=== PATIENT | female | born 1965 | race American Indian/Alaskan Native ===

== ENCOUNTER 2018-01-12 15:53 | Outpatient (CLI) | payer MEDICARE, MEDICAID, SELFPAY ==
--- NOTE | 2018-01-12 11:12 | DI.RAD_ITS ---
SYMPTOM/DIAGNOSIS: RIB PAIN, LT SIDE R07.81 LEFT RIBS WITH PA CHEST: Comparison 11/23/16. Heart size and pulmonary vasculature are within normal limits. The lungs are clear and well expanded. No effusions or pneumothoraces identified. No left rib fractures are identified. Degenerative changes are seen in the spine. There is an old compression deformity of the T-12 vertebral body. IMPRESSION: No acute abnormality.
== END 2018-01-12 16:13 ==
PROVIDERS: PCP Family Medicine; Visit Provider Family Medicine
DX: R07.81 Pleurodynia (principal)
CPT/HCPCS: 71046; 71100

== ENCOUNTER 2018-02-05 00:37 | Outpatient (CLI) | payer MEDICARE, MEDICAID, SELFPAY ==
--- NOTE | 2018-02-05 12:35 | DI.MAMMO_ITS ---
SYMPTOMS/DIAGNOSIS: BREAST LUMP OR MASS, N63.0, H/O FIBROCYSTIC BREASTS DIAGNOSTIC BILATERAL MAMMOGRAM AND LEFT BREAST ULTRASOUND: MAMMOGRAM: Mammograms were interpreted according to the usual protocol including computer analysis with CAD system, tomosynthesis and C view imaging. The patient notes a palpable abnormality in the superior left breast. A marker was placed over this location. Comparison is made with mammograms from 2010 through 2017. The breasts are composed of heterogeneously dense fibroglandular tissue, breast density category C. No suspicious microcalcifications or changes are seen. No abnormality is seen in the area of the marker in the superior left breast. LEFT BREAST ULTRASOUND: Left breast ultrasound shows normal-appearing breast tissue. No cyst or mass is identified. IMPRESSION: Category 1C, negative mammogram and left breast ultrasound. Yearly screening mammography is recommended. Bi-RADS category C. The breasts are heterogeneously dense, which may obscure small masses.
== END 2018-02-05 00:57 ==
PROVIDERS: PCP Family Medicine; Visit Provider Family Medicine
DX: N63.20 Unspecified lump in the left breast, unspecified quadrant (principal); N60.12 Diffuse cystic mastopathy of left breast; N64.59 Other signs and symptoms in breast
CPT/HCPCS: 76642; 77062; 77063; 77066; 77067; G0279

== ENCOUNTER → 2018-02-15 10:40 | Outpatient (BNVA) | payer MEDICARE, MEDICAID, SELFPAY | PROVIDERS: PCP Family Medicine; Visit Provider Psychiatry & Neurology Neurology | DX: G56.03 Carpal tunnel syndrome, bilateral upper limbs (principal); R20.2 Paresthesia of skin | CPT/HCPCS: 99214 ==

== ENCOUNTER → 2018-05-28 09:11 | Outpatient (BNVA) | payer MEDICARE, MEDICAID, SELFPAY | PROVIDERS: PCP Family Medicine; Visit Provider Psychiatry & Neurology Neurology | DX: R20.2 Paresthesia of skin (principal); M54.5 Low back pain; G95.89 Other specified diseases of spinal cord | CPT/HCPCS: 99214 ==

== ENCOUNTER 2018-09-17 01:07 | Outpatient (CLI) | payer MEDICARE, MEDICAID, SELFPAY ==
--- NOTE | 2018-09-17 09:19 | DI.RAD_ITS ---
SYMPTOM/DIAGNOSIS: RT HIP PAIN, M25.551 RIGHT HIP AND PELVIS: Three views were obtained. There appears to be slight narrowing of the cartilaginous joint space of the right hip superiorly. Similar changes appear to be present on the left. Slight hypertrophic spurring of the acetabulae also noted bilaterally. The femoral heads appear intact. No other bony abnormality is seen. CONCLUSION: Findings consistent with mild DJD of both hips.
== END 2018-09-17 01:27 ==
PROVIDERS: PCP Family Medicine; Visit Provider Family Medicine
DX: M25.551 Pain in right hip (principal); M16.0 Bilateral primary osteoarthritis of hip
CPT/HCPCS: 73502

== ENCOUNTER 2018-11-15 00:33 | Outpatient (CLI) | payer MEDICARE, MEDICAID, SELFPAY ==
--- NOTE | 2018-11-15 08:17 | DI.RAD_ITS ---
SYMPTOM/DIAGNOSIS: CLAVICLE PAIN M89.8X8 RIGHT CLAVICLE: The right clavicle appears intact. There are minimal degenerative changes involving the AC joint.
== END 2018-11-15 00:53 ==
PROVIDERS: PCP Family Medicine; Visit Provider Family Medicine
DX: M19.011 Primary osteoarthritis, right shoulder; M25.511 Pain in right shoulder
CPT/HCPCS: 73000

== ENCOUNTER 2018-12-11 15:41 | Outpatient (REF) | payer MEDICARE, MEDICAID, SELFPAY ==
[2018-12-11 21:29] LABS: HCT 39.1 % (36.0-46.0); HGB 12.9 g/dL (12.0-15.5)
[2018-12-11 21:44] LABS: TSH (W/Ref FT4) 1.48 uIU/mL (0.36-3.74)
== END 2018-12-11 16:01 ==
LOC: NCHCN 15:41
PROVIDERS: PCP Family Medicine; Visit Provider Family Medicine
DX: E03.9 Hypothyroidism, unspecified (principal); D50.9 Iron deficiency anemia, unspecified
CPT/HCPCS: 84443; 85014; 85018

== ENCOUNTER 2019-03-07 14:19 | Outpatient (REF) | payer MEDICARE, MEDICAID, SELFPAY ==
--- NOTE | 2019-03-07 10:45 | PAPFT_PTH ---
PATIENT: Som Rubio LOC: [facility]#:[id number] AGE/SX: 53/F ROOM: RE03/07/[address]: Zayra Paulino V : 1965 BED: DIS: 03/07/2019 SPEC #: [id number] RECD: 03/08/19 13:02 STATUS: YEIMI REAngeles #: [id number] MINI: 03/07/19 10:[address]: Zayra Paulino V DEPT: [facility] Cytology RECD BY: Briana Stacy Tissues: 1 - CX/ENDOCX FOR PAP SMEARS Procedures: PAP THIN PREP/UVM Screening HPV DNA PROBE Comments: [id number]
== END 2019-03-07 14:39 ==
LOC: NCHCN 14:19
PROVIDERS: PCP Family Medicine; Visit Provider Family Medicine
DX: Z12.4 Encounter for screening for malignant neoplasm of cervix (principal); Z01.419 Encounter for gynecological examination (general) (routine) without abnormal findings
CPT/HCPCS: 88142; 87624

== ENCOUNTER 2019-11-08 10:51 | Outpatient (REF) | payer MEDICARE, MEDICAID, SELFPAY ==
[2019-11-08 19:23] LABS: HCT 37.8 % (36.0-46.0); HGB 11.9 g/dL (12.0-15.5); Mean Corp. HGB Concentration 31.5 g/dL (32.0-36.0); Mean Corpuscular Hemoglobin 26.8 pg (27.0-33.0); Mean Corpuscular Volume 85.1 fL (80-95); Mean Platelet Volume 9.6 fL (8.0-11.0); Platelet Count 464 x1000/uL (130-400); RBC 4.44 m/cumm (4.00-5.20); RBC Distribution Width 15.3 % (11.7-14.6); White Blood Cell Count 7.17 k/cumm (4.4-10.8)
[2019-11-08 19:50] LABS: ALT 18 U/L (14-59); AST 13 U/L (15-37); Albumin 3.7 g/dL (3.4-5.0); Alkaline Phosphatase 54 U/L (46-116); Anion Gap 8.5 mmol/L (3-11); BUN 14 mg/dL (7-18); Bilirubin, Total 0.4 mg/dL (0.2-1.0); CO2 26.5 mmol/L (21.0-32.0); CREATININE 0.72 mg/dL (0.55-1.02); Calcium 9.5 mg/dL (8.5-10.1); Chloride 106 mmol/L (98-107); Glucose 87 mg/dL (74-106); Potassium 4.5 mmol/L (3.5-5.1); Sodium 141 mmol/L (136-145); TSH (W/Ref FT4) 2.07 uIU/mL (0.36-3.74)
== END 2019-11-08 11:11 ==
LOC: NCHCN 10:51
PROVIDERS: PCP Family Medicine; Visit Provider Family Medicine
DX: E03.9 Hypothyroidism, unspecified (principal); D50.9 Iron deficiency anemia, unspecified
CPT/HCPCS: 80053; 85027; 84443

== ENCOUNTER 2019-11-14 01:43 | Outpatient (CLI) | payer MEDICARE, MEDICAID, SELFPAY ==
[2019-11-14] MEDS: Breeza Beverage 473 ML BTL PO (08:36)
[2019-11-14] MEDS: Normal Saline - Diluent 50 ML VIAL IV (10:40)
[2019-11-14] MEDS: Omnipaque 350 MG/ML 100 ML BTL IJ (10:40)
--- NOTE | 2019-11-14 10:41 | DI.CT_ITS ---
EXAM: CT ABDOMEN PELVIS W CLINICAL HISTORY: RT FLANK PAIN,R10.9,RENAL CYST, N28.1. TECHNIQUE: Imaging Protocol: Axial computed tomography images with coronal and sagittal reformatted images were created and reviewed CONTRAST MATERIAL: Intravenous: Omnipaque 350 Contrast volume:100 ml Oral: yes COMPARISON: US ABDOMEN ULTRASOUND (P) from 05/23/2016 MR MRI LUMBAR WO from 08/20/2018 MR MRI LUMBAR WO from 08/20/2018 FINDINGS: ABDOMEN: Lung Bases: Normal where visualized. Liver: Normal density. No measurable mass. Gallbladder and biliary tract: No radiodense calculus or dilation. Pancreas: Normal density, no abnormal calcifications or inflammatory process. Spleen: Normal. Kidneys: Normal size, contour and axis. No radiodense stones or obstructive uropathy. No masses seen. Simple cyst at the lower pole the right kidney now measuring 5.8 cm in greatest dimension. Adrenal glands: No masses seen. Abdominal Aorta: Abdominal portion non-dilated. PELVIS: Bladder: Symmetric distention, no gross wall thickening. Bowel: No obstruction or bowel wall thickening. Normal appendix. Peritoneal cavity: No ascites, collection or mesenteric inflammatory response. Bones: Stable T12 compression fracture. Reproductive organs: Within normal limits. Lymph nodes: Unremarkable. Impression: Right renal cyst. No evidence of stones or hydronephrosis. RADIATION DOSE DELIVERED: 1,305.09mGy.cm Total DLP DATA REPOSITORY: All CT scans at this facility are submitted to the National Radiology Data Registry (NRDR) Dose Index Registry (DIR) with the [employer] (ACR). RADIATION OPTIMIZATION: All CT scans at this facility use at least one of these dose optimization te chniques: automated exposure control; mA and/or kV adjustment per patient size (includes targeted exa ms where dose is matched to clinical indication); or iterative reconstruction.
== END 2019-11-14 02:03 ==
PROVIDERS: PCP Family Medicine; Visit Provider Family Medicine
DX: N28.1 Cyst of kidney, acquired (principal)
CPT/HCPCS: 74177; J3490

== ENCOUNTER → 2019-11-21 14:02 | Outpatient (BNVA) | payer MEDICARE, MEDICAID, SELFPAY | PROVIDERS: PCP Family Medicine; Referring Provider Family Medicine; Visit Provider Urology | DX: N28.1 Cyst of kidney, acquired (principal) | CPT/HCPCS: 99203; 99214 ==

== ENCOUNTER 2020-06-24 04:15 | Outpatient (CLI) | payer MEDICARE, MEDICAID, SELFPAY ==
--- NOTE | 2020-07-13 08:49 | ZIOP_ITS ---
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 ?The patient was in normal sinus rhythm for the majority of the recording with an average heart rate of 72 bpm. ?There were 9 episodes of supraventricular tachycardia with the longest lasting 12 beats. There were rare PACs. ?There were no episodes of atrial fibrillation, no pauses greater than 3 seconds and no evidence of high degree heart block. ?There were 2 patient triggered events not associated with arrhythmia
== END 2020-06-24 04:16 | disposition home or self-care (01) ==
LOC: RT 04:15
PROVIDERS: PCP Family Medicine; Visit Provider Family Medicine
DX: R01.1 Cardiac murmur, unspecified (principal)
CPT/HCPCS: 93246

== ENCOUNTER 2020-07-13 08:49 | Outpatient (CLI) | payer MEDICARE, MEDICAID, SELFPAY | END 2020-07-13 08:50 | LOC: CARDO 07-20 09:57 | PROVIDERS: PCP Family Medicine; Referring Provider Family Medicine; Visit Provider Internal Medicine Cardiovascular Disease | DX: R01.1 Cardiac murmur, unspecified (principal); I47.1 Supraventricular tachycardia | CPT/HCPCS: 93248 ==

== ENCOUNTER 2020-08-18 14:25 | Outpatient (REF) | payer MEDICARE, MEDICAID, SELFPAY ==
[2020-08-18 16:18] LABS: HCT 34.3 % (36.0-46.0); HGB 10.4 g/dL (11.2-15.7)
[2020-08-18 16:42] LABS: TSH (W/Ref FT4) 1.07 uIU/mL (0.36-3.74)
== END 2020-08-18 14:26 | disposition home or self-care (01) ==
LOC: NCHCN 14:25
PROVIDERS: PCP Family Medicine; Visit Provider Family Medicine
DX: E03.9 Hypothyroidism, unspecified (principal); D50.9 Iron deficiency anemia, unspecified
CPT/HCPCS: 84443; 85014; 85018

== ENCOUNTER 2021-02-09 21:40 | Outpatient (REF) | payer MEDICARE, MEDICAID, SELFPAY ==
[2021-02-12 09:30] LABS: Codeine Negative ng/mL (Cutoff: 25); Dihydrocodeine Negative ng/mL (Cutoff: 25); Hydrocodone Negative ng/mL (Cutoff: 25); Hydromorphone Negative ng/mL (Cutoff: 25); Morphine Negative ng/mL (Cutoff: 25); Naloxone Negative ng/mL (Cutoff: 25); Norhydrocodone 43 ng/mL (Cutoff: 25); Noroxycodone Negative ng/mL (Cutoff: 25); Noroxymorphone Negative ng/mL (Cutoff: 25); Opiates Interpretation Positive.
== END 2021-02-09 21:41 | disposition home or self-care (01) ==
LOC: NCHCN 21:40
PROVIDERS: PCP Family Medicine; Visit Provider Family Medicine
DX: Z51.81 Encounter for therapeutic drug level monitoring (principal)
CPT/HCPCS: 80361; 80362; 80365

== ENCOUNTER 2021-02-15 01:03 | Outpatient (CLI) | payer MEDICARE, MEDICAID, SELFPAY ==
--- NOTE | 2021-02-15 10:30 | DI.RAD_ITS ---
Exam(s) XR CERVICAL SPINE COMP 4-5V EXAM: XR CERVICAL SPINE COMP 4-5V CLINICAL HISTORY: NEUROPATHIC PAIN, M79.2,RT ELBOW, PAIN, M25.521. TECHNIQUE: 2D digital imaging was performed. COMPARISON: No exams were available for comparison FINDINGS: There is mild reversal of the normal lordotic curvature of the cervical spine, however, there is no e vidence of acute fracture or listhesis nor offset of the spinal laminar line. There is mild disc spa ce narrowing at C5-6 level. No prominent Luschka joint osteophytes. The neural foramen appear nicel y patent all levels on the oblique views. There are no cervical ribs. Incidentally noted on the lat eral view is calcification in the supraspinous ligament at C5 level, this calcification measuring 9 x 5 millimeters. There are mild multilevel degenerative changes in the facet joints. IMPRESSION: Mild disc space narrowing noted at C5-6 level. Some facet arthropathy mild. Reversal of the normal lordotic curvature Clinically indicated follow-up MRI can be performed. DATA REPOSITORY: RADIATION DOSE DELIVERED:
== END 2021-02-15 01:23 ==
PROVIDERS: PCP Family Medicine; Visit Provider Family Medicine
DX: M25.521 Pain in right elbow (principal); M79.2 Neuralgia and neuritis, unspecified; M47.892 Other spondylosis, cervical region
CPT/HCPCS: 72050

== ENCOUNTER 2021-02-25 01:03 | Outpatient (CLI) | payer MEDICARE, MEDICAID, SELFPAY ==
--- NOTE | 2021-02-25 13:17 | DI.RAD_ITS ---
Exam(s) XR ELBOW RT COMPLETE EXAM: XR ELBOW RT COMPLETE CLINICAL HISTORY: RT ELBOW PAIN M25.521. TECHNIQUE: 2D digital imaging was performed. COMPARISON: No exams were available for comparison FINDINGS: BONES: No acute fracture is present. No bony destructive lesion is seen. JOINTS: Mild periarticular spurring. The elbow is normally aligned. No joint effusion is seen. SOFT TISSUE: Normal. IMPRESSION: Mild degenerative changes.. DATA REPOSITORY: RADIATION DOSE DELIVERED:
== END 2021-02-25 01:23 ==
PROVIDERS: PCP Family Medicine; Visit Provider Family Medicine
DX: M25.521 Pain in right elbow (principal)
CPT/HCPCS: 73080

== ENCOUNTER 2021-06-24 18:14 | Outpatient (REF) | payer MEDICARE, MEDICAID, SELFPAY ==
[2021-06-24 18:39] LABS: HCT 32.6 % (36.0-46.0); HGB 9.7 g/dL (11.2-15.7); MCH 23.5 pg (27.0-33.0); MCHC 29.8 % (32.0-36.0); MCV 79.1 fL (80-95); MPV 9.1 fL (8.0-11.0); Platelet Count 427 10^3/uL (130-400); RBC 4.12 10^6/uL (3.93-5.22); RDW 17.6 % (11.7-14.6); RDW-SD 50.9 fL; WBC 8.55 10^3/uL (4.4-10.8)
[2021-06-24 18:58] LABS: ALT 16 U/L (14-59); AST 16 U/L (15-37); Albumin 3.8 g/dL (3.4-5.0); Alkaline Phosphatase 65 U/L (46-116); Anion Gap 7.9 mmol/L (3-11); BUN 10 mg/dL (7-18); Bilirubin, Total 0.4 mg/dL (0.2-1.0); C-Reactive Protein 0.07 mg/dL (0.0-0.3); CO2 26.1 mmol/L (21.0-32.0); CREATININE 0.7 mg/dL (0.55-1.02); Calcium 8.9 mg/dL (8.5-10.1); Chloride 108 mmol/L (98-107); Glucose 88 mg/dL (74-106); Potassium 4.1 mmol/L (3.5-5.1); Sodium 142 mmol/L (136-145); TSH (W/Ref FT4) 0.98 uIU/mL (0.36-3.74); Total Protein 7.3 g/dL (6.4-8.2)
[2021-06-24 19:48] LABS: Ferritin 6 ng/mL (8-252); Vitamin B12 444 pg/mL (193-986)
[2021-06-24 20:04] LABS: Hemoglobin A1C 5.5 % (<5.7)
[2021-06-29 11:52] LABS: Codeine Negative ng/mL (Cutoff: 25); Dihydrocodeine 62 ng/mL (Cutoff: 25); Hydrocodone 88 ng/mL (Cutoff: 25); Hydromorphone 55 ng/mL (Cutoff: 25); Morphine Negative ng/mL (Cutoff: 25); Naloxone Negative ng/mL (Cutoff: 25); Norhydrocodone 219 ng/mL (Cutoff: 25); Noroxycodone Negative ng/mL (Cutoff: 25); Noroxymorphone Negative ng/mL (Cutoff: 25); Opiates Interpretation Positive.
== END 2021-06-24 18:15 | disposition home or self-care (01) ==
LOC: NCHCN 18:14
PROVIDERS: PCP Family Medicine; Visit Provider Family Medicine
DX: R63.1 Polydipsia (principal); M25.551 Pain in right hip; R20.2 Paresthesia of skin; M54.2 Cervicalgia; Z51.81 Encounter for therapeutic drug level monitoring
CPT/HCPCS: 80053; 80361; 80362; 80365; 85027; 82607; 82728; 83036; 84443; 86140

== ENCOUNTER 2021-07-09 01:40 | Outpatient (CLI) | payer MEDICARE, MEDICAID, SELFPAY ==
--- NOTE | 2021-07-09 | DI.MRI_ITS ---
Exam(s) MR BRAIN WO/W EXAM: MR BRAIN WO/W CLINICAL HISTORY: PARESTHESIA HANDS, R20.2 TECHNIQUE: Multiplanar multisequence MRI of the brain was performed. CONTRAST MATERIAL: IV Contrast: 20 mL of Dotarem contrast administered. COMPARISON: MR MRI BRAIN WO from 08/20/2018 FINDINGS: The examination is limited due to patient motion artifact. VENTRICLES AND EXTRA AXIAL SPACES: Normal in size and morphology for the patient's age. HEMORRHAGE: None. CEREBRAL PARENCHYMA: No focus of restricted diffusion to suggest acute infarct. No space-occupying le clarence identified. There are few hyperintense signal foci in the white matter. These likely reflect sm all vessel ischemic disease. MIDLINE SHIFT: None. BRAINSTEM/CEREBELLUM: Normal. CALVARIUM: Normal. ENHANCEMENT: No suspicious enhancement identified. VISUALIZED PARANASAL SINUSES/MASTOIDS: Small mucous retention cysts or polyps are seen in the maxilla ry sinuses. The remaining visualized paranasal sinuses are clear. SHUNGNAK OF VEGA: Normal flow void. PITUITARY GLAND: Unremarkable. OTHER FINDINGS: IMPRESSION: 1. A few hyperintense foci in the white matter on the FLAIR and T2 images likely reflecting small ves lyn ischemic disease. 2. No evidence of acute infarct or enhancing lesion. DATA REPOSITORY:
--- NOTE | 2021-07-09 | DI.MRI_ITS ---
Exam(s) MR CERVICAL SPINE WO/W EXAM: MR CERVICAL SPINE WO/W CLINICAL HISTORY: WEAKNESS RT ARM, R53.1, TRANSVERSE MYELITIS, G37.3, CERVICALGIA, M54.2 TECHNIQUE: Multiplanar multisequence MRI of the cervical spine was performed. CONTRAST MATERIAL: IV Contrast: 20 ML of Dotarem contrast administered. COMPARISON: CR XR CERVICAL SPINE COMP 4-5V from 02/15/2021 FINDINGS: The examination is limited due to patient motion artifact. BONES: Vertebral body heights are maintained. Intervertebral disc spaces are normal. Alignment is nor mal. Bone marrow signal intensity is within normal limits. CERVICAL CORD: Craniovertebral junction is unremarkable. The cervical cord is normal size and signal intensity. No lesion is present. SOFT TISSUES: Unremarkable. ENHANCEMENT: No suspicious enhancement identified. C2-3: No disc herniation or bulge is identified. No significant central spinal canal or neural forami nal stenosis. C3-4: No disc herniation or bulge is identified. No significant central spinal canal or neural forami nal stenosis C4-5: No disc herniation or bulge is identified. No significant central spinal canal or neural forami nal stenosis C5-6: There is prominence of the osteophyte disc complex. This causes mild narrowing of the central spinal canal. No significant neural foraminal stenosis is present. C6-7: No disc herniation or bulge is identified. No significant central spinal canal or neural forami nal stenosis C7-T1: No disc herniation or bulge is identified. No significant central spinal canal or neural ross inal stenosis IMPRESSION: 1. There is normal signal in the spinal cord. 2. Prominence of the osteophyte disc complex at C5-6 causing mild central spinal canal stenosis. 3. No abnormal enhancement is identified in the spinal cord. DATA REPOSITORY:
[2021-07-09] MEDS: Normal Saline Flush 10 ML SYR IVP (14:57)
[2021-07-09] MEDS: Gadoterate meglumine 20 ML VIAL IVP (14:58)
== END 2021-07-09 02:00 ==
PROVIDERS: PCP Family Medicine; Visit Provider Family Medicine
DX: R20.2 Paresthesia of skin (principal); R53.1 Weakness; M54.2 Cervicalgia; G37.3 Acute transverse myelitis in demyelinating disease of central nervous system; M48.02 Spinal stenosis, cervical region; R94.02 Abnormal brain scan
CPT/HCPCS: 70553; 72156

== ENCOUNTER 2021-07-27 01:44 | Outpatient (CLI) | payer MEDICARE, MEDICAID, SELFPAY ==
--- NOTE | 2021-07-27 15:00 | DI.MAMMO_ITS ---
Exam(s) MAMMO SCREENING EXAM: MAMMO SCREENING CLINICAL HISTORY: SCREENING, Z12.31 TECHNIQUE: Bilateral full field digital CC and MLO mammographic images were obtained with 3D tomosyn thesis and utilizing computer aided detection (CAD). COMPARISON: Available for comparison. FINDINGS: Masses/Architectural Distortion: None seen. Microcalcifications: No suspicious pleomorphic-type are seen. Skin Thickening/Nipple Retraction: None. IMPRESSION: 1. No significant interval change with no specific features of malignancy noted. 2. Unless there is more urgent need, screening mammography is recommended, as per [employer] guidelines. BI-RADS Category 1 - Negative Breast Density - Category C - Heterogeneously dense Breast density category C or D implies that the patient has dense breast tissue. Dense breast tissue is very common and is not abnormal but dense breast tissue can make it harder to find cancer on a ma mmogram. Also, dense breast tissue may increase their breast cancer risk. This information about the result of the mammogram report was provided to the patient to raise their awareness. Use this report when you speak with the patient about their risks for breast cancer, which includes their family hist ory. At that time, you may recommend for more screening tests (Ultrasound or MRI) as they might be us eful based on their risk. A negative radiographic report should not delay biopsy if a dominant or clinically suspicious mass is present. Up to ten percent of cancers are not identified on mammography. A negative report may reinforce clinical impression. Adenosis and dense breasts may obscure an underlying neoplasm. False positive reports average 6 to 10%. Patient will receive a letter notifying them of these results.
== END 2021-07-27 02:04 ==
PROVIDERS: PCP Family Medicine; Visit Provider Family Medicine
DX: Z12.31 Encounter for screening mammogram for malignant neoplasm of breast (principal)
CPT/HCPCS: 77063; 77067

== ENCOUNTER → 2021-11-10 01:31 | Outpatient (CLI) | payer MEDICARE, MEDICAID, SELFPAY ==
--- NOTE | 2021-11-10 09:15 | DI.MRI_ITS ---
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 TECHNIQUE: Multiplanar multisequence MRI of the Thoracic spine was performed. COMPARISON: MR MRI THORACIC SPINE from 11/23/2016 FINDINGS: Bones: There is a stable old compression deformity of T12. There is again seen minimal posterior dis placement of the inferior endplate resulting in mild narrowing of the central spinal canal at T12-L1. Alignment is satisfactory. There is no change in the mixed signal in the T6 vertebral body. This pr obably represents a stable lesion such as a hemangioma.. Marrow signal is otherwise within normal li mits. Cord: The thoracic cord is normal size and signal intensity. No intrinsic cord lesion is present. No cord compression is present. Discs: No disc herniation or bulge is present. No central spinal canal or neural foraminal stenosis i s seen in the thoracic spine except for the T12-L1 level as described above. Soft tissues: There is stable renal cysts. IMPRESSION: No evidence of cord compression or abnormal thoracic spinal cord signal. DATA REPOSITORY:
--- NOTE | 2021-11-10 09:15 | DI.MRI_ITS ---
Exam(s) MR LUMBAR SPINE WO EXAM: MR LUMBAR SPINE WO CLINICAL HISTORY: PARESTHESIA FOOT,R20.2;TRANSVERSE MYELITIS,G37.3; DEMYELINATING OUTSOLE FLEXER, G37.9. TECHNIQUE: Multiplanar multisequence MRI of the Lumbar spine was performed. COMPARISON: MR MRI LUMBAR WO from 08/20/2018 FINDINGS: Bones: The last intervertebral disc space is designated the L5/S1 level for the numbering purpose of this examination. There is an old T12 compression deformity which appears stable. There is mild pe r screw mcgee of the inferior endplate into the spinal canal resulting in mild central spinal canal na rrowing. Alignment is satisfactory. There again seen areas of T1 and T2 hyperintensity in the verteb ral bodies consistent with hemangiomata. Cord: The conus tip ends at the L1 level. It is of normal size and signal intensity. T12-L1: No disc herniations or bulges are present. Mild central spinal canal narrowing secondary to t he old T12 compression deformity alignment. No significant neural foraminal stenosis. L1-2: Mild diffuse disc bulge. No central spinal canal or neural foraminal stenosis. L2-3: No disc herniations or bulges are present. No central spinal canal or neural foraminal stenosis . L3-4: No disc herniations or bulges are present. No central spinal canal or neural foraminal stenosis .Mild degenerative changes of the facets. L4-5: There is a mild diffuse disc bulge. There are hypertrophic changes of the facets and ligamentu m flavum. Very mild narrowing of the central spinal canal and bilateral neural foramen are noted. L5-S1: No focal disc herniation or diffuse disc bulge. Mild degenerative changes of the facets are s een. No central spinal canal or neural foraminal stenosis. Soft tissues: The visualized SI joints and sacrum are well maintained. There again seen bilateral fernanda al cysts. IMPRESSION: 1. Multilevel degenerative changes resulting in central and neural foraminal stenosis as described ab ove. The findings are most marked at the L4-5 disc level. 2. Stable T12 compression deformity. DATA REPOSITORY:
== END ==
PROVIDERS: PCP Family Medicine; Visit Provider Family Medicine
DX: R20.2 Paresthesia of skin (principal); G37.3 Acute transverse myelitis in demyelinating disease of central nervous system; G37.9 Demyelinating disease of central nervous system, unspecified; M47.816 Spondylosis without myelopathy or radiculopathy, lumbar region; M48.061 Spinal stenosis, lumbar region without neurogenic claudication; M43.8X4 Other specified deforming dorsopathies, thoracic region
CPT/HCPCS: 72146; 72148

== ENCOUNTER 2022-06-24 15:04 | Outpatient (REF) | payer MEDICARE, MEDICAID, SELFPAY ==
[2022-06-24 19:22] LABS: FREE T4 1.16 ng/dL (0.76-1.46); TSH 1.61 uIU/mL (0.36-3.74)
[2022-06-24 19:33] LABS: HCT 35.8 % (36.0-46.0); HGB 11.3 g/dL (11.2-15.7)
[2022-06-24 19:34] LABS: Calculated LDL 125 mg/dL (<100); Cholesterol 199 mg/dL (<200); HDL Cholesterol 59 mg/dL (40-60); Triglyceride 75 mg/dL (<150)
== END 2022-06-24 15:05 | disposition home or self-care (01) ==
LOC: NCHCN 15:04
PROVIDERS: PCP Family Medicine; Visit Provider Family Medicine
DX: E03.9 Hypothyroidism, unspecified (principal); D50.9 Iron deficiency anemia, unspecified; Z00.00 Encounter for general adult medical examination without abnormal findings
CPT/HCPCS: 80061; 84439; 84443; 85014; 85018

== ENCOUNTER 2022-08-01 00:38 | Outpatient (CLI) | payer MEDICARE, MEDICAID, SELFPAY ==
--- NOTE | 2022-08-01 09:16 | DI.MAMMO_ITS ---
Exam(s) MAMMO SCREENING EXAM: MAMMO SCREENING CLINICAL HISTORY: SCREENING FOR BREAST CANCER Z12.31. TECHNIQUE: Bilateral full field digital CC and MLO mammographic images were obtained with 3D tomosyn thesis and utilizing computer aided detection (CAD). COMPARISON: Prior mammograms were reviewed. FINDINGS: There has been no significant change in the appearance and distribution of the fibroglandular tissue. Asymmetric density possible nodule seen in the right breast on the 3D cc imaging is unchanged 2015 an d therefore benign. Small nodular density seen posteriorly in the left breast on the 3D MLO views is unchanged from 2017 and therefore benign. There are no new spiculated masses evident in either breast. There are no new malignant-appearing mi crocalcification groups. There is no significant architectural distortion nor skin thickening-retraction. IMPRESSION: No radiographic evidence of malignancy. No radiographic evidence of malignancy. BI-RADS Category 2 - Benign Findings Breast Density - Category C - Heterogeneously dense Breast density Category C or D implies that the patient has dense breast tissue. Dense breast tissue can make it harder to find cancer on a mammogram. Dense breast tissue is also associated with an incr eased risk of breast cancer. This information about the result of the mammogram report was provided to the patient to raise their awareness. Use this report when you speak with the patient about their risks for breast cancer, which includes their family history. At that time, you may recommend additional screening tests (Ultrasoun d or MRI) as these tests may add significant information. A negative radiographic report should not delay biopsy if a dominant or clinically suspicious mass is present. Up to ten percent of cancers are not identified on mammography. A negative report may reinforce clinical impression. Adenosis and dense breasts may obscure an underlying neoplasm. False positive reports average 6 to 10%. Patient will receive a letter notifying them of these results.
== END 2022-08-01 00:58 ==
PROVIDERS: PCP Family Medicine; Visit Provider Family Medicine
DX: Z12.31 Encounter for screening mammogram for malignant neoplasm of breast (principal)
CPT/HCPCS: 77063; 77067

== ENCOUNTER 2022-08-15 01:08 | Outpatient (CLI) | payer MEDICARE, MEDICAID, SELFPAY ==
--- NOTE | 2022-08-15 08:45 | DI.NM_ITS ---
APPROVED REPORT Exam: Exercise Treadmill Patient Location: Out-Patient Room/Bed: Stress Nurse: Blayne Lopez RN Ordering Provider:IKE KHAN, Contact Number: BMI: 32.13 Baseline Rhythm: Sinus Rhythm Indications: Chest pressure Medical History Medical History: Anxiety, Lower back pain, ADD, Heart murmur, anemia, obesity Cardiac Medications: Levalbuterol tartrate, Allergies: PCN, Lasix, Carbapenems, Cephalosporins, Aldactone, Naproxen. Cardiac Risk Factors: Obesity, Asthma, family hx. Pretest Chest Pain Characteristics: No chest pain Exercise History: Physically active Physical Disabilities: none Lung Sounds: nbnon Heart Sounds: Regular Stress Test Details Test: Exercise stress testing was performed using a Reagan protocol. Nuclear Acquisition: Rest Tc-99m/Stress Tc-99m 1 day Rest Isotope: Tc-99m Sestamibi. Dose: 10 Date: 08/15/2022 Injection Time: 0905 Stress Isotope: Tc-99m Sestamibi. Dose: 31 Date: 08/15/2022 Injection Time: 1045 HR Resting HR Supine: 78 bpm Max Heart Rate (APMHR): 165.183751 bpm Resting HR Standin bpm Target HR (85% APMHR): 140.169702 bpm Max HR Achieved: 150 bpm % of APMHR: 90.91 Recovery HR: 98 bpm HR response to stress: Normal HR response to stress BP Resting BP Supine: 158/84 mmHg Resting BP Standin/92 mmHg Max BP: 182/78 mmHg Recovery BP: 148/80 mmHg BP response to stress: Normal blood pressure response to stress. ECG Resting ECG: Sinus Rhythm Ectopy: none Stress ECG: Sinus Tachycardia ST Change: No significant ST segment changes noted Arrhythmia: Rare PVC Recovery ECG: Sinus Rhythm Recovery ST Change: No significant ST segment changes noted Recovery Arrhythmia: none Clinical Reason for Termination: Fatigue Stress Symptoms: General Fatigue Exercise duration: 08 min58 sec Highest Stage Reached: Stage 3: 3.4 mph at 14% grade. Exercise capacity: 10.16 METs Angina Score: None Houser Treadmill Score: 8.4 Rate Pressure Product: [id number] Stress ECG Conclusion 1. Resting electrocardiogram was within normal limits 2. Patient exercised on the Reagan protocol and completed a workload of 10.16 METS 3. Normal heart rate and blood pressure response to exercise. The patient achieved 91% of predicted heart rate for age 4. There was no electrocardiographic evidence of myocardial ischemia 5. See MPI report Houser Treadmill Score is 8.4 which is Low risk. Stress Test Summary STAGE Time (mins) Speed (mph) Grade (%) HR BP SpO2 SYMPTOMS METS Supine 78 158/84 97 none Standing 76 136/92 97 none 1 3 1.7 10 111 172/72 94 none 4.5 2 6 2.5 12 132 182/78 97 none 7 3 9 3.4 14 148 10 1 min recovery 136 180/66 none 3 min recovery 111 170/72 97 none 6 min recovery 98 148/80 97 none MPI Conclusion Myocardial perfusion is normal. There is no ischemia or evidence of prior infarction EF is 58%, wall motion is normal Radiologist Interpretation Radiologist Interpretation by: Josse Quiroga MD Interpretation Date/Time: 08/15/2022 17:02:42
== END 2022-08-15 01:28 ==
LOC: DI 01:08
PROVIDERS: PCP Family Medicine; Visit Provider Family Medicine
DX: R07.89 Other chest pain (principal)
CPT/HCPCS: 78452; 93016; 93018; 93017

== ENCOUNTER 2022-09-13 13:25 | Outpatient (REF) | payer MEDICARE, MEDICAID, SELFPAY ==
[2022-09-13 22:31] LABS: Rheumatoid Factor <8.6 IU/mL (<12.0)
[2022-09-14 14:28] LABS: ANA Interpretation Negative (Negative)
[2022-09-15 18:31] LABS: C-Reactive Protein 0.12 mg/dL (0.0-0.3); TSH (W/Ref FT4) 1.49 uIU/mL (0.36-3.74)
[2022-09-16 19:37] LABS: Ferritin 5 ng/mL (10-291)
[2022-09-28 12:55] LABS: HLA-B27 Result Negative
== END 2022-09-13 13:26 | disposition home or self-care (01) ==
LOC: NCHCN 13:25
PROVIDERS: PCP Family Medicine; Visit Provider Family Medicine
DX: M54.2 Cervicalgia (principal); D50.9 Iron deficiency anemia, unspecified
CPT/HCPCS: 86812; 82728; 84443; 86038; 86140; 86431

== ENCOUNTER 2022-09-20 12:40 | Outpatient (REF) | payer MEDICARE, MEDICAID, SELFPAY ==
[2022-09-20 15:50] LABS: HCT 38.6 % (36.0-46.0); HGB 12.3 g/dL (11.2-15.7); MCH 27.7 pg (27.0-33.0); MCHC 31.9 % (32.0-36.0); MCV 87 fL (80-95); MPV 9.1 fL (8.0-11.0); Platelet Count 426 10^3/uL (130-400); RBC 4.44 10^6/uL (3.93-5.22); RDW 15.5 % (11.7-14.6); RDW-SD 49.5 fL; WBC 7.38 10^3/uL (4.4-10.8)
[2022-09-20 16:18] LABS: ESR 9 mm/hr (0-30)
[2022-09-20 16:34] LABS: ALT 26 U/L (14-59); AST 16 U/L (15-37); Albumin 3.7 g/dL (3.4-5.0); Alkaline Phosphatase 66 U/L (46-116); Anion Gap 7.4 mmol/L (3-11); BUN 16 mg/dL (7-18); Bilirubin, Total 0.3 mg/dL (0.2-1.0); CO2 29.6 mmol/L (21.0-32.0); CREATININE 0.7 mg/dL (0.55-1.02); Calcium 9.2 mg/dL (8.5-10.1); Chloride 105 mmol/L (98-107); Estimated GFR 102.07 (mL/min/1.73m2); Ferritin 10 ng/mL (8-252); Glucose 57 mg/dL (74-106); Potassium 3.9 mmol/L (3.5-5.1); Sodium 142 mmol/L (136-145); TSH (W/Ref FT4) 1.02 uIU/mL (0.36-3.74); Total Protein 7.7 g/dL (6.4-8.2)
[2022-09-20 18:56] LABS: C-Reactive Protein 0.11 mg/dL (0.0-0.3)
[2022-09-21 17:54] LABS: Rheumatoid Factor <8.6 IU/mL (<12.0)
[2022-09-22 09:50] LABS: Lyme Ab w Rflx to Lyme Confirm Negative (Negative)
[2022-09-22 15:01] LABS: ANA Interpretation Negative (Negative)
[2022-09-23 14:55] LABS: HLA-B27 Result Negative
[2022-09-24 15:57] LABS: Anaplasma phagocytophilum Negative (Negative); B. miyamotoi PCR Negative (Negative); Babesia divergens/MO-1 Negative (Negative); Babesia duncani Negative (Negative); Babesia microti Negative (Negative); Ehrlichia chaffeensis Negative (Negative); Ehrlichia ewingii/canis Negative (Negative); Ehrlichia muris eauclairensis Negative (Negative)
== END 2022-09-20 12:41 | disposition home or self-care (01) ==
LOC: NCHCN 12:40
PROVIDERS: PCP Family Medicine; Visit Provider Family Medicine
DX: M54.2 Cervicalgia (principal); M79.2 Neuralgia and neuritis, unspecified; D50.9 Iron deficiency anemia, unspecified; M25.50 Pain in unspecified joint; E03.9 Hypothyroidism, unspecified; G37.8 Other specified demyelinating diseases of central nervous system; Z01.83 Encounter for blood typing
CPT/HCPCS: 80053; 85027; 85652; 86812; 87798; 82728; 84443; 86038; 86140; 86431; 86618

== ENCOUNTER 2022-10-14 01:48 | Outpatient (CLI) | payer MEDICARE, MEDICAID, SELFPAY ==
[2022-10-17 09:55] LABS: Insulin 6.2 uIU/mL (<29.0)
== END 2022-10-14 01:49 | disposition home or self-care (01) ==
PROVIDERS: PCP Family Medicine; Visit Provider Family Medicine
DX: E16.2 Hypoglycemia, unspecified (principal)
CPT/HCPCS: 36415; 83036; 83525

== ENCOUNTER 2022-12-14 09:27 | Outpatient (REF) | payer MEDICARE, MEDICAID, SELFPAY ==
[2022-12-14 17:38] LABS: Bacteria Rare HPF (Negative); C & S Indicated? C&S Done As Ordered; Casts Negative LPF (Negative); Crystals Negative HPF (Negative); Epithelial Cells Rare HPF (Negative); Mucus Negative (Negative); RBC 0-2 HPF (0-2)
== END 2022-12-14 09:28 | disposition home or self-care (01) ==
LOC: NCHCN 09:27
PROVIDERS: PCP Family Medicine; Visit Provider Nurse Practitioner Family
DX: N39.0 Urinary tract infection, site not specified (principal)
CPT/HCPCS: 81015; 87086

== ENCOUNTER → 2022-12-22 12:48 | Outpatient (CLI) | payer MEDICARE, MEDICAID, SELFPAY ==
--- NOTE | 2022-12-22 | DI.US_ITS ---
Exam(s) US ABDOMEN LIMITED EXAM: US ABDOMEN LIMITED CLINICAL HISTORY: RUQ ABD PAIN R10.11 AND RT RENAL FLANK PAIN TECHNIQUE: Ultrasound abdomen performed using standard protocol. COMPARISON: US US breast LT limited from 02/05/2018 FINDINGS: There is no ascites evident. LIVER: There are no hepatic lesions evident nor dilatation of intrahepatic ducts. GALLBLADDER/BILIARY: There are no gallstones. No gallbladder wall edema nor pericholecystic fluid. The common hepatic duct isnot dilated, measuring 5mm at the level of chico hepatis. PANCREAS: There is no evidence of pancreatic mass nor dilatation of the pancreatic duct. RIGHT KIDNEY:No evidence of solid mass, calculus, nor hydronephrosis. There is an exophytic 4 x 3.9 c m cyst off the inferior pole of right kidney noted. IMPRESSION: 1. No evidence of cholelithiasis nor dilatation of the biliary tree. 2. Benign 4 cm cyst in the inferior pole the right kidney. No solid renal masses. No calculi nor h ydronephrosis. 3. There is no ascites. DATA REPOSITORY:
== END ==
PROVIDERS: PCP Family Medicine; Visit Provider Physician Assistant Medical
DX: N28.1 Cyst of kidney, acquired
CPT/HCPCS: 76705

== ENCOUNTER 2022-12-22 15:44 | Outpatient (REF) | payer MEDICARE, MEDICAID, SELFPAY ==
[2022-12-22 16:03] LABS: Abs Immature Grans 0.03 10^3/uL (0.0-0.06); Absolute Basophil Count 0.06 10^3/uL (0.0-0.2); Absolute Eosinophil Count 0.08 10^3/uL (0.0-0.7); Absolute Lymphocyte Count 1.97 10^3/uL (1.2-3.4); Absolute Monocyte Count 0.71 10^3/uL (0.1-0.8); Absolute Neutrophil Count 5.59 10^3/uL (1.2-6.7); Basophils % 0.7; Eosinophils % 0.9; HCT 41.3 % (36.0-46.0); HGB 13.2 g/dL (11.2-15.7); Immature Grans % 0.4; Lymphocytes % 23.3; MCV 88 fL (80-95); MPV 8.7 fL (8.0-11.0); Monocytes % 8.4; Neutrophils % 66.3; Platelet Count 401 10^3/uL (130-400); RBC 4.72 10^6/uL (3.93-5.22); RDW 13.3 % (11.7-14.6); WBC 8.44 10^3/uL (4.4-10.8)
[2022-12-22 16:37] LABS: ALT 20 U/L (14-59); AST 15 U/L (15-37); Alkaline Phosphatase 69 U/L (46-116); Anion Gap 8.4 mmol/L (3-11); BUN 11 mg/dL (7-18); Bilirubin, Total 0.5 mg/dL (0.2-1.0); CO2 28.6 mmol/L (21.0-32.0); CREATININE 0.7 mg/dL (0.55-1.02); Calcium 9.4 mg/dL (8.5-10.1); Chloride 102 mmol/L (98-107); Estimated GFR 102.07 (mL/min/1.73m2); Glucose 92 mg/dL (74-106); Lipase 26 U/L (16-77); Potassium 4.1 mmol/L (3.5-5.1); Sodium 139 mmol/L (136-145); Total Protein 7.5 g/dL (6.4-8.2)
[2022-12-22 17:04] LABS: Bacteria Rare HPF (Negative); C & S Indicated? C&S Done As Ordered; Casts Negative LPF (Negative); Crystals Negative HPF (Negative); Epithelial Cells Rare HPF (Negative); Mucus Negative (Negative); WBC 0-2 HPF (0-5)
== END 2022-12-22 15:45 | disposition home or self-care (01) ==
LOC: LBN 15:44
PROVIDERS: PCP Family Medicine; Visit Provider Physician Assistant Medical
DX: R10.11 Right upper quadrant pain (principal); R82.998 Other abnormal findings in urine
CPT/HCPCS: 80053; 83690; 81015; 85025; 87086

== ENCOUNTER 2023-01-03 11:56 | Outpatient (REF) | payer MEDICARE, MEDICAID, SELFPAY | END 2023-01-03 11:57 | disposition home or self-care (01) | LOC: NCHCN 11:56 | PROVIDERS: PCP Family Medicine; Visit Provider Family Medicine | DX: R10.11 Right upper quadrant pain (principal); R10.31 Right lower quadrant pain; R82.79 Other abnormal findings on microbiological examination of urine | CPT/HCPCS: 87086 ==

== ENCOUNTER 2023-07-06 11:52 | Outpatient (REF) | payer MEDICARE, MEDICAID, SELFPAY ==
[2023-07-06 15:36] LABS: HCT 41.2 % (36.0-46.0); HGB 13.4 g/dL (11.2-15.7)
[2023-07-06 16:59] LABS: Hemoglobin A1C 5.4 % (<5.7)
[2023-07-06 17:15] LABS: Anion Gap 5.3 mmol/L (3-11); BUN 14 mg/dL (7-18); CO2 31.7 mmol/L (21.0-32.0); CREATININE 0.8 mg/dL (0.55-1.02); Calcium 9.7 mg/dL (8.5-10.1); Calculated LDL 124 mg/dL (<100); Chloride 107 mmol/L (98-107); Cholesterol 197 mg/dL (<200); Estimated GFR 86.42 (mL/min/1.73m2); Glucose 85 mg/dL (74-106); HDL Cholesterol 63 mg/dL (40-60); Sodium 144 mmol/L (136-145); TSH (W/Ref FT4) 1.49 uIU/mL (0.36-3.74); Triglyceride 53 mg/dL (<150)
== END 2023-07-06 11:53 | disposition home or self-care (01) ==
LOC: NCHCN 11:52
PROVIDERS: PCP Family Medicine; Visit Provider Family Medicine
DX: E03.9 Hypothyroidism, unspecified (principal); M54.17 Radiculopathy, lumbosacral region
CPT/HCPCS: 80048; 80061; 83036; 84443; 85014; 85018

== ENCOUNTER → 2023-10-12 00:31 | Outpatient (CLI) | payer MEDICARE, MEDICAID, SELFPAY ==
--- NOTE | 2023-10-12 11:30 | DI.US_ITS ---
Exam(s) US PELVIS TRANSVAGINAL EXAM: US PELVIS TRANSVAGINAL CLINICAL HISTORY: POSTMENOPAUSAL BLEEDING, N95.0. TECHNIQUE: Transabdominal and transvaginal pelvic ultrasound was performed using standard protocol. COMPARISON: US PELVIS TRANSVAG from 04/12/2011 FINDINGS: UTERUS: Position: Anteverted. Size: 9.0 long by 4.6 AP by 5.6 transverse cm Endometrium: 0.9 cm. Endometrial stripe is thickened in this postmenopausal patient. It is homogeneo us. Myometrium: The patient has uterine fibroids. The largest measures 2.7 x 2.2 x 2 cm. Cervix: Unremarkable. OVARIES: The ovaries were not visualized on this transabdominal or transvaginal examination. CUL-DE-SAC: Free fluid: None. Other: None. IMPRESSION: 1. Fibroid uterus. 2. The endometrial stripe is thickened at 0.9 cm in this postmenopausal patient. Gynecologic consult is recommended. 3. The ovaries were not visualized during this examination. DATA REPOSITORY:
== END ==
PROVIDERS: PCP Family Medicine; Visit Provider Family Medicine
DX: N95.0 Postmenopausal bleeding (principal)
CPT/HCPCS: 76830; 76856

== ENCOUNTER 2023-10-18 15:19 | Outpatient (REF) | payer MEDICARE, MEDICAID, SELFPAY ==
--- NOTE | 2023-10-18 14:30 | ENDOMET_PTH ---
PATIENT: Som Rubio LOC: [facility]#:[id number] AGE/SX: 58/F ROOM: RE10/18/[address]: Fatemeh Cosme MD : 1965 BED: DIS: 10/18/2023 SPEC #: [id number] RECD: 10/18/23 17:23 STATUS: YEIMI REAngeles #: [id number] MINI: 10/18/23 14:[address]: Fatemeh Cosme DEPT: Surgical Specimen RECD BY: Briana Stacy ENTERED: 10/18/23 17:23 SP TYPE: Endomet OTHR DR: Zayra Paulino V Tissues: 1 - ENDOMETRIUM BX/CLIFFORD Procedures: GROSS AND MICRO LEVEL 4 Comments: [id number]
== END 2023-10-18 15:20 | disposition home or self-care (01) ==
LOC: LBN 15:19
PROVIDERS: PCP Family Medicine; Visit Provider Obstetrics & Gynecology
DX: N95.0 Postmenopausal bleeding (principal); N39.3 Stress incontinence (female) (male)
CPT/HCPCS: 88305

== ENCOUNTER 2024-01-10 01:44 | Outpatient (CLI) | payer MEDICARE, MEDICAID, SELFPAY ==
--- NOTE | 2024-01-10 | DI.MAMMO_ITS ---
Exam(s) MAMMO SCREENING EXAM: MAMMO SCREENING CLINICAL HISTORY: Screening, Z12.31 TECHNIQUE: Bilateral full field digital CC and MLO mammographic images were obtained with 3D tomosyn thesis and utilizing computer aided detection (CAD). COMPARISON: Available for comparison. FINDINGS: Masses/Architectural Distortion: No suspicious masses or areas of architectural distortion. Microcalcifications: No suspicious pleomorphic-type are seen. Skin Thickening/Nipple Retraction: None. IMPRESSION: 1. No significant interval change with no specific features of malignancy noted. 2. Unless there is more urgent need, screening mammography is recommended, as per [place] guidelines. BI-RADS Category 1 - Negative Breast Density - Category C - Heterogeneously dense Breast density category C or D implies that the patient has dense breast tissue. Dense breast tissue is very common and is not abnormal but dense breast tissue can make it harder to find cancer on a ma mmogram. Also, dense breast tissue may increase their breast cancer risk. This information about the result of the mammogram report was provided to the patient to raise their awareness. Use this report when you speak with the patient about their risks for breast cancer, which includes their family hist ory. At that time, you may recommend for more screening tests (Ultrasound or MRI) as they might be us eful based on their risk. A negative radiographic report should not delay biopsy if a dominant or clinically suspicious mass is present. Up to ten percent of cancers are not identified on mammography. A negative report may reinforce clinical impression. Adenosis and dense breasts may obscure an underlying neoplasm. False positive reports average 6 to 10%. Patient will receive a letter notifying them of these results.
== END 2024-01-10 02:04 ==
LOC: DI 01:44
PROVIDERS: PCP Family Medicine; Visit Provider Family Medicine
DX: Z12.31 Encounter for screening mammogram for malignant neoplasm of breast (principal)
CPT/HCPCS: 77063; 77067

== ENCOUNTER 2024-01-11 12:10 | Outpatient (REF) | payer MEDICARE, MEDICAID, SELFPAY ==
--- NOTE | 2024-01-11 10:30 | PAPFT_PTH ---
PATIENT: Som Rubio LOC: [facility]#:[id number] AGE/SX: 58/F ROOM: RE01/11/[address]: Zayra Paulino V : 1965 BED: DIS: 01/11/2024 SPEC #: [id number] RECD: 01/12/24 12:46 STATUS: YEIMI REAngeles #: [id number] MINI: 01/11/24 10:[address]: Zayra Paulino V DEPT: [facility] Cytology RECD BY: Briana Stacy Tissues: 1 - CX/ENDOCX FOR PAP SMEARS Procedures: PAP THIN PREP/UVM Screening HPV DNA PROBE Comments: [id number] (HPV 16 7 18/45)
== END 2024-01-11 12:11 | disposition home or self-care (01) ==
LOC: NCHCN 12:10
PROVIDERS: PCP Family Medicine; Visit Provider Family Medicine
DX: Z11.51 Encounter for screening for human papillomavirus (HPV) (principal); Z01.419 Encounter for gynecological examination (general) (routine) without abnormal findings
CPT/HCPCS: 88142; 87624

== ENCOUNTER 2024-06-27 15:06 | Outpatient (REF) | payer MEDICARE, MEDICAID, SELFPAY ==
[2024-06-27 20:11] LABS: TSH 1.11 uIU/mL (0.36-3.74)
[2024-07-03 11:07] LABS: Hydrocodone Interpretation Negative.; Hydrocodone by LC-MS/MS Negative ng/mL (Cutoff: 25); Hydromorphone by LC-MS/MS Negative ng/mL (Cutoff: 25); Norhydrocodone by LC-MS/MS Negative ng/mL (Cutoff: 25)
== END 2024-06-27 15:07 | disposition home or self-care (01) ==
LOC: NCHCN 15:06
PROVIDERS: PCP Family Medicine; Visit Provider Family Medicine
DX: M54.17 Radiculopathy, lumbosacral region (principal); E03.9 Hypothyroidism, unspecified; Z79.891 Long term (current) use of opiate analgesic
CPT/HCPCS: 80361; 84439; 84443

== ENCOUNTER 2024-07-19 17:50 | Outpatient (REF) | payer MEDICARE, MEDICAID, SELFPAY ==
[2024-07-24 07:53] LABS: Codeine Negative ng/mL (Cutoff: 25); Dihydrocodeine 28 ng/mL (Cutoff: 25); Hydrocodone 63 ng/mL (Cutoff: 25); Hydromorphone 35 ng/mL (Cutoff: 25); Morphine Negative ng/mL (Cutoff: 25); Naloxone Negative ng/mL (Cutoff: 25); Norhydrocodone 129 ng/mL (Cutoff: 25); Noroxycodone Negative ng/mL (Cutoff: 25); Noroxymorphone Negative ng/mL (Cutoff: 25); Opiates Interpretation Positive.
== END 2024-07-19 17:51 | disposition home or self-care (01) ==
LOC: NCHCN 17:50
PROVIDERS: PCP Family Medicine; Visit Provider Family Medicine
DX: M79.7 Fibromyalgia (principal); Z79.891 Long term (current) use of opiate analgesic
CPT/HCPCS: 80361; 80362; 80365

== ENCOUNTER 2024-09-06 10:19 | Emergency (ER) | payer MEDICARE, MEDICAID, SELFPAY ==
[2024-09-06 10:26] VITALS: BP 122/85; PULSE 87; RESP 16; TEMP 36.8; O2SAT 98
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
[2024-09-06 11:50] VITALS: BP 148/85; PULSE 81; RESP 18; O2SAT 99
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
== END 2024-09-06 13:41 | disposition home or self-care (01) ==
PROVIDERS: Emergency Provider Registered Nurse Emergency; PCP Family Medicine
DX: S09.8XXA Other specified injuries of head, initial encounter (principal); R51.9 Headache, unspecified; S01.511A Laceration without foreign body of lip, initial encounter; S01.21XA Laceration without foreign body of nose, initial encounter; E03.9 Hypothyroidism, unspecified; V47.5XXA Car driver injured in collision with fixed or stationary object in traffic accident, initial encounter; Y92.481 Parking lot as the place of occurrence of the external cause
CPT/HCPCS: 99284; 70450; 70486; 71046; 71100

== ENCOUNTER 2024-09-10 01:31 | Outpatient (CLI) | payer MEDICARE, MEDICAID, SELFPAY ==
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
== END 2024-09-10 01:51 ==
LOC: DI 01:31
PROVIDERS: PCP Family Medicine; Visit Provider Family Medicine
DX: R93.89 Abnormal findings on diagnostic imaging of other specified body structures (principal); R20.2 Paresthesia of skin
CPT/HCPCS: 72146; 72148

== ENCOUNTER 2025-01-29 00:11 | Outpatient (CLI) | payer MEDICARE, MEDICAID, SELFPAY ==
--- NOTE | 2025-01-29 08:31 | DI.MAMMO_ITS ---
Exam(s) MAMMO SCREENING EXAM: MAMMO SCREENING CLINICAL HISTORY: Z12.31 Screening TECHNIQUE: Bilateral full field digital CC and MLO mammographic images were obtained with 3D tomosynthesis and utilizing computer aided detection (CAD). COMPARISON: Comparison is made with prior examinations. FINDINGS: Masses/Architectural Distortion: No suspicious masses or areas of architectural distortion are present. There are no new nodules seen. Microcalcifications: No suspicious pleomorphic-type are seen. Skin Thickening/Nipple Retraction: None. IMPRESSION: 1. No significant interval change with no specific features of malignancy noted. 2. Unless there is more urgent need, screening mammography is recommended, as per [place] [employer] guidelines. BI-RADS Category 1 - Negative Breast Density - Category C - The breast are heterogeneously dense, which may obscure small masses. Breast density Category C or D implies that the patient has dense breast tissue. Dense breast tissue can make it harder to find cancer on a mammogram. Dense breast tissue is also associated with an increased risk of breast cancer. This information about the result of the mammogram report was provided to the patient to raise their awareness. Use this report when you speak with the patient about their risks for breast cancer, which includes their family history. At that time, you may recommend additional screening tests (Ultrasound or MRI) as these tests may add significant information. A negative radiographic report should not delay biopsy if a dominant or clinically suspicious mass is present. Up to ten percent of cancers are not identified on mammography. A negative report may reinforce clinical impression. Adenosis and dense breasts may obscure an underlying neoplasm. False positive reports average 6 to 10%. Patient will receive a letter notifying them of these results.
== END 2025-01-29 00:31 ==
LOC: DI 00:11
PROVIDERS: PCP Family Medicine; Visit Provider Family Medicine
DX: Z12.31 Encounter for screening mammogram for malignant neoplasm of breast (principal)
CPT/HCPCS: 77063; 77067

== ENCOUNTER 2025-02-05 01:25 | Outpatient (CLI) | payer MEDICARE, MEDICAID, SELFPAY ==
--- NOTE | 2025-02-05 | DI.US_ITS ---
Exam(s) US PELVIS TRANSVAGINAL EXAM: US PELVIS TRANSVAGINAL CLINICAL HISTORY: POSTMENOPAUSAL BLEEDING, N95.0 TECHNIQUE: Transabdominal and transvaginal imaging was performed using standard protocol. COMPARISON: US US PELVIS TRANSVAGINAL from 10/12/2023 FINDINGS: The bladder is unremarkable. UTERUS: Anteverted. cm Endometrium: Maximum 8 mm near the fundus. No focal abnormality. Myometrium: scar. Posterior fibroid measured at 2.1 cm. Posterior myometrial fibroid measured at 1.5 cm. Cervix: Unremarkable. OVARIES: Right: Cyst or mass: 2 centimeter maximal dimension cyst. Left: Cyst or mass: None. DOPPLER: Color: Symmetric and uniform flow to both ovaries. No hyperemia. CUL-DE-SAC: Free fluid: None. IMPRESSION: 1. Posterior uterine fibroids. Thickened endometrium of 8 millimeters. 2. Unremarkable bilateral ovaries. DATA REPOSITORY:
== END 2025-02-05 01:45 ==
LOC: DI 01:25
PROVIDERS: PCP Family Medicine; Visit Provider Family Medicine
DX: N95.0 Postmenopausal bleeding (principal); D25.9 Leiomyoma of uterus, unspecified
CPT/HCPCS: 76830; 76856

== ENCOUNTER 2025-02-24 11:18 | Outpatient (CLI) | payer MEDICARE, MEDICAID, SELFPAY ==
[2025-02-25 11:18] LABS: Lyme Ab w Rflx to Lyme Confirm Negative (Negative)
== END 2025-02-24 11:19 | disposition home or self-care (01) ==
LOC: LBO 11:19
PROVIDERS: PCP Family Medicine; Visit Provider Family Medicine
DX: G89.29 Other chronic pain (principal)
CPT/HCPCS: 36415; 86618

== ENCOUNTER 2025-02-24 11:20 | Outpatient (REF) | payer MEDICARE, MEDICAID, SELFPAY | END 2025-02-24 11:21 | disposition home or self-care (01) | LOC: LBN 11:20 | PROVIDERS: PCP Family Medicine; Visit Provider Obstetrics & Gynecology | DX: N39.3 Stress incontinence (female) (male) (principal); R82.89 Other abnormal findings on cytological and histological examination of urine; N85.8 Other specified noninflammatory disorders of uterus | CPT/HCPCS: 88305; 87086 ==